=== PATIENT | male | born 1935 | race Caucasian/White ===

== ENCOUNTER → 2019-05-19 | Outpatient (CLI) | payer MEDICARE, BC ==
--- NOTE | 2019-05-19 17:36 | CT ---
EXAMINATION TYPE: CT lumbar spine wo con DATE OF EXAM: 05/19/2019 COMPARISON: None HISTORY: Low back pain. CT DLP: 1071 mGycm CONTRAST: None TECHNIQUE: CT of the lumbar spine is performed on a spiral scan at 3 mm thick sections. Reconstructed images are performed in the coronal and sagittal planes. FINDINGS: T12-L1: No focal disc herniation or significant disc bulge is evident. No spinal canal stenosis or neural foraminal stenosis is present. L1-L2: No focal disc herniation or significant disc bulge is evident. No spinal canal stenosis or n eural foraminal stenosis is present L2-L3: No focal disc herniation or significant disc bulge is evident. No spinal canal stenosis or n eural foraminal stenosis is present L3-L4: Minimal disc bulge is present with anterior thecal sac contact. No spinal canal stenosis or ne ural foraminal stenosis present. L4-L5: Mild disc bulge is mild anterior thecal sac flattening. Facet hypertrophy and ligamentum flavu m laxity is present. No spinal canal stenosis is present. There is moderate bilateral foraminal narro wing. L5-S1: Mild disc bulge is present without spinal canal stenosis or neural foraminal stenosis. Facet h ypertrophy is present. There is moderate left and mild right foraminal narrowing. Vertebral alignment appears normal. IMPRESSION: Disc bulging L3-4 through L5-S1. This appears to have the greatest effect which is mild at L4-5. No s pastro canal stenosis is present. 2. Facet hypertrophy and disc bulging contributing to moderate bilateral foraminal narrowing L4-5 and left L5-S1 discussed above.
== END | disposition home or self-care (01) ==
LOC: RADCTMAIN 13:12
PROVIDERS: ATTEND Neurological Surgery
DX: M48.061 Spinal stenosis, lumbar region without neurogenic claudication (principal); M48.07 Spinal stenosis, lumbosacral region; M51.86 Other intervertebral disc disorders, lumbar region
CPT/HCPCS: 72131

== ENCOUNTER 2023-07-04 19:54 | Inpatient (IN) | payer MEDICARE, BC ==
--- NOTE | 2023-07-04 21:36 | ED ---
General Adult HPI - General Source: patient, RN notes reviewed Mode of arrival: wheelchair <Cornelia Beavers - Last Filed: 07/04/23 21:35> - General Source: RN notes reviewed, old records reviewed - History of Present Illness -: days(s) Location: abdomen Radiation: abdomen Severity scale (1-10): 7 Quality: aching, sharp Consistency: constant Improves with: none Worsens with: none Associated Symptoms: loss of appetite, nausea/vomiting, weakness Treatments Prior to Arrival: none <Azeem Beach - Last Filed: 07/05/23 22:34> - General Chief complaint: Weakness Stated complaint: abd pain,nausea-sent from drs - History of Present Illness Initial comments: 88 year old male presents to the emergency department for chief complaint of abdominal pain. Patient is on peritoneal dialysis and reports pain x2-3 days. He is currently on antibiotics for peritonitis but his symptoms are not improving. (Cornelia Beavers) This 88-year-old male to the emergency department for evaluation multiple complaints of mainly abdominal pain. Patient was recently diagnosed with peritonitis and is eating to be admitted for IV antibiotics as well as antibiotics and need for dialysis (Azeem Beach) - Related Data Home Medications Medication Instructions Recorded Confirmed Albuterol Sulfate [Albuterol 2 puff PO RT-Q4H PRN 07/05/23 07/05/23 Sulfate Hfa] Apixaban [Eliquis] 2.5 mg PO BID 07/05/23 07/05/23 Atorvastatin [Lipitor] 20 mg PO HS 07/05/23 07/05/23 Budesonide [Pulmicort] 0.5 mg INHALATION RT-BID 07/05/23 07/05/23 Carboxymethylcellulose Sodium 1 drop BOTH EYES QID PRN 07/05/23 07/05/23 [Refresh Tears] Dialyvite 800 1 tab PO DAILY 07/05/23 07/05/23 Docusate [Colace] 100 mg PO DAILY PRN 07/05/23 07/05/23 Ferric Citrate [Auryxia] 210 mg PO BID-W/MEALS 07/05/23 07/05/23 HYDROcodone/APAP 5-325MG [[place] 1 tab PO TID 07/05/23 07/05/23 5-325] Insulin NPH Human Isophane 14 unit SQ QAM 07/05/23 07/05/23 [Novolin N Flexpen] Insulin NPH Human Isophane 34 unit SQ HS 07/05/23 07/05/23 [Novolin N Flexpen] Levothyroxine Sodium [Synthroid] 112 mcg PO DAILY 07/05/23 07/05/23 Magnesium Oxide [Mag-Ox] 400 mg PO DAILY 07/05/23 07/05/23 Megestrol Acetate 20 mg PO HS 07/05/23 07/05/23 Midodrine [ProAmatine] 5 mg PO TID 07/05/23 07/05/23 Midodrine [ProAmatine] 5 mg PO TID PRN 07/05/23 07/05/23 Pantoprazole [Protonix] 40 mg PO BID 07/05/23 07/05/23 Repaglinide [Prandin] 1 mg PO AC-TID 07/05/23 07/05/23 allopurinoL [Zyloprim] 100 mg PO DAILY 07/05/23 07/05/23 polyethylene glycoL 3350 [Miralax] 17 gm PO DAILY PRN 07/05/23 07/05/23 Allergies Allergy/AdvReac Type Severity Reaction Status Date / Time baclofen Allergy Rash/Hives Verified 07/05/23 07:31 Iodinated Contrast Media Allergy Unknown Verified 07/05/23 07:31 Sulfa (Sulfonamide Allergy Unknown Verified 07/05/23 07:31 Antibiotics) Review of Systems ROS Other: All systems not noted in ROS Statement are negative. <Cornelia Beavers - Last Filed: 07/04/23 21:35> ROS Other: All systems not noted in ROS Statement are negative. <Azeem Beach - Last Filed: 07/05/23 22:34> ROS Statement: Those systems with pertinent positive or pertinent negative responses have been documented in the HPI. Past Medical History Past Medical History: Coronary Artery Disease (CAD), Heart Failure, CVA/TIA, Hypertension, Thyroid Disorder Additional Past Medical History / Comment(s): gout, sleep apnea, glomerial nephritis, spinal stenosis, sarcoidosis, pancreatitis, 1st degree av block History of Any Multi-Drug Resistant Organisms: None Reported Past Surgical History: Appendectomy, Cholecystectomy, Hernia Repair, Orthopedic Surgery, Pacemaker Additional Past Surgical History / Comment(s): left hip, cataract, cardioversion, P cath for perontoneal dialysis Past Psychological History: No Psychological Hx Reported Smoking Status: Former smoker Past Alcohol Use History: None Reported Past Drug Use History: None Reported <Cornelia Beavers - Last Filed: 07/04/23 21:35> General Exam <Cornelia Beavers - Last Filed: 07/04/23 21:35> General appearance: alert, in no apparent distress Head exam: Present: atraumatic, normocephalic, normal inspection Eye exam: Present: normal appearance, PERRL, EOMI. Absent: scleral icterus, conjunctival injection, periorbital swelling ENT exam: Present: normal exam, mucous membranes moist Neck exam: Present: normal inspection. Absent: tenderness, meningismus, lymphadenopathy Respiratory exam: Present: normal lung sounds bilaterally. Absent: respiratory distress, wheezes, rales, rhonchi, stridor Cardiovascular Exam: Present: regular rate, normal rhythm, normal heart sounds. Absent: systolic murmur, diastolic murmur, rubs, gallop, clicks GI/Abdominal exam: Present: soft, normal bowel sounds. Absent: distended, tenderness, guarding, rebound, rigid Extremities exam: Present: normal inspection, full ROM, normal capillary refill. Absent: tenderness, pedal edema, joint swelling, calf tenderness Back exam: Present: normal inspection Neurological exam: Present: alert, oriented X3, CN II-XII intact Psychiatric exam: Present: normal affect, normal mood Skin exam: Present: warm, dry, intact, normal color. Absent: rash <Azeem Beach - Last Filed: 07/05/23 22:34> - General Exam Comments Initial Comments: Visual Physical Exam Vital signs reviewed General: Well-appearing, nontoxic, no acute distress. Head: Normocephalic, atraumatic Eyes: PERRLA, EOMI ENT: Airway patent Chest: Nonlabored breathing Skin: No visual rash, normal skin tone Neuro: Alert and oriented 3 Musculoskeletal: No gross abnormalities (Cornelia Beavers) Course <Azeem Beach - Last Filed: 07/05/23 22:34> Vital Signs 07/04/23 07/04/23 07/05/23 21:24 21:49 01:25 Temperature 97.4 F L Pulse Rate 67 85 57 L Respiratory 18 20 18 Rate Blood Pressure 83/49 117/57 97/57 O2 Sat by Pulse 96 97 94 L Oximetry 07/05/23 07/05/23 07/05/23 05:24 07:00 08:00 Temperature 97.8 F Pulse Rate 58 L 71 67 Respiratory 18 18 16 Rate Blood Pressure 94/48 108/55 88/54 O2 Sat by Pulse 98 96 96 Oximetry 07/05/23 07/05/23 07/05/23 09:00 10:00 11:00 Temperature 97.7 F Pulse Rate 60 66 62 Respiratory 16 14 16 Rate Blood Pressure 107/67 93/63 104/50 O2 Sat by Pulse 96 95 98 Oximetry 07/05/23 07/05/23 07/05/23 11:46 11:47 11:52 Temperature Pulse Rate 64 60 Respiratory Rate Blood Pressure O2 Sat by Pulse 94 L Oximetry 07/05/23 07/05/23 07/05/23 12:00 13:00 14:00 Temperature Pulse Rate 60 65 72 Respiratory 16 17 22 Rate Blood Pressure 97/56 88/62 105/55 O2 Sat by Pulse 94 L 97 99 Oximetry 07/05/23 07/05/23 07/05/23 14:30 15:00 15:30 Temperature Pulse Rate 64 59 L 90 Respiratory 18 20 22 Rate Blood Pressure 98/60 101/49 105/48 O2 Sat by Pulse 97 97 97 Oximetry 07/05/23 07/05/23 07/05/23 15:35 16:00 16:30 Temperature 98.0 F Pulse Rate 91 65 65 Respiratory 16 17 24 Rate Blood Pressure 107/58 109/50 97/58 O2 Sat by Pulse 97 96 97 Oximetry 07/05/23 07/05/23 17:30 18:00 Temperature 98.0 F Pulse Rate 62 72 Respiratory 17 20 Rate Blood Pressure 82/49 93/63 O2 Sat by Pulse 97 96 Oximetry - Reevaluation(s) Reevaluation #1: 07/05/23 01:20 Medical records are reviewed (Azeem Beach) Reevaluation #2: 07/05/23 01:49 Patient symptoms are improving (Azeem Beach) Reevaluation #3: 07/05/23 01:49 Patient informed results and questions answered (Azeem Beach) Reevaluation #4: 11/09/23 01:20 Was pt. sent in by a medical professional or institution (NYASIA Lopez, DAIRY AND FOOD LABORATORY ASSISTANT, urgent care, hospital, or jail...) When possible be specific @ -no Did you speak to anyone other than the patient for history (EMS, parent, family, police, friend...)? What history was obtained from this source @ -no Did you review nursing and triage notes (agree or disagree)? Why? @ -agree Are old charts reviewed (outside hosp., previous admission, EMS record, old EKG, old radiological studies, urgent care reports/EKG's, jail records)? Report findings @ -yes Differential Diagnosis (chest pain, altered mental status, abdominal pain women, abdominal pain men, vaginal bleeding, weakness, fever, dyspnea, syncope, headache, dizziness, GI bleed, back pain, seizure, CVA, palpatations, mental health, musculoskeletal)? @ -prior EKG interpreted by me (3pts min.). @ -yes X-rays interpreted by me (1pt min.). @ -yes CT interpreted by me (1pt min.). @ -no U/S interpreted by me (1pt. min.). @ -no What testing was considered but not performed or refused? (CT, X-rays, U/S, labs)? Why? @ -none What meds were considered but not given or refused? Why? @ -none Did you discuss the management of the patient with other professionals (professionals i.e. NYASIA Lopez, DAIRY AND FOOD LABORATORY ASSISTANT, lab, RT, psych nurse, group social worker, master machinist, teacher, detention officer, embedded case manager)? Give summary @ -no Was smoking cessation discussed for >3mins.? @ -no Was critical care preformed (if so, how long)? @ -no Were there social determinants of health that impacted care today? How? (Homelessness, low income, unemployed, alcoholism, drug addiction, transportation, low edu. Level, literacy, decrease access to med. care, snf, rehab)? @ -none Was there de-escalation of care discussed even if they declined (Discuss DNR or withdrawal of care, Hospice)? DNR status @ -no What co-morbidities impacted this encounter? (DM, HTN, Smoking, COPD, CAD, Cancer, CVA, ARF, Chemo, Hep., AIDS, mental health diagnosis, sleep apnea, morbid obesity)? @ -none Was patient admitted / discharged? Hospital course, mention meds given and route, prescriptions, significant lab abnormalities, going to OR and other pertinent info. @ - 88 male to the emergency department for evaluation of no tinnitus. Patient be admitted on IV antibiotics and diastole antibiotics and patient can be admitted for further supportive care pain control and nausea vomiting control. Admitted Undiagnosed new problem with uncertain prognosis? @ -no Drug Therapy requiring intensive monitoring for toxicity (Heparin, Nitro, Insulin, Cardizem)? @ -no Were any procedures done? @ -no Diagnosis/symptom? @ -Peritonitis, abdominal pain, dialysis Acute, or Chronic, or Acute on Chronic? @ -Acute Uncomplicated (without systemic symptoms) or Complicated (systemic symptoms)? @ -Complicated Side effects of treatment? @ -no Exacerbation, Progression, or Severe Exacerbation? @ -exacerbation Poses a threat to life or bodily function? How? (Chest pain, [place], [place], pneumonia, PE, COPD, DKA, ARF, appy, cholecystitis, CVA, Diverticulitis, Homicidal, Suicidal, threat to staff... and all critical care pts) @ -yes with extremes of age (Azeem Beach) Reevaluation #5: 07/05/23 01:20 Differential Abdominal Pain Men: Appendicitis, cholecystitis, diverticulosis, ischemic bowel, pancreatitis, hepat itis, UTI, gastroenteritis, AAA, incarcerated hernia, bowel obstruction, constipation, inflammatory bowel, hepatitis, peptic ulcer disease, splenic infarction, perforated viscus, testicular torsion, this is not meant to be an all-inclusive list (Azeem Beach) - Consultations Consultation #1: Spoke with Dr. ventura agrees to admit this patient (Azeem Beach) Consultation #2: spoke with his Dr José for nephrology (Azeem Beach) EKG Findings - EKG Comments: EKG Findings:: EKG is paced 73 QRS 176 QTC 456 - EKG Results: EKG: interpreted by ERMD <Azeem Beach - Last Filed: 07/05/23 22:34> Medical Decision Making <Cornelia Beavers - Last Filed: 07/04/23 21:35> - Lab Data Result diagrams: 07/04/23 21:51 07/04/23 21:51 - EKG Data -: EKG Interpreted by Me - Radiology Data Radiology results: report reviewed (CT of the abdomen and pelvis is possible constipation versus pending obstruction but no acute disease), image reviewed <Azeem Beach - Last Filed: 07/05/23 22:34> - Medical Decision Making I preformed the quick note portion of this chart. Electronically signed by Cornelia Beavers PA-C. (Cornelia Beavers) 88 male to the emergency department for evaluation of no tinnitus. Patient be admitted on IV antibiotics and diastole antibiotics and patient can be admitted for further supportive care pain control and nausea vomiting control. (Azeem Beach) - Lab Data Lab Results 07/04/23 07/04/23 07/04/23 Range/Units 21:51 21:51 21:51 WBC 8.8 (3.8-10.6) k/uL RBC 2.46 L (4.30-5.90) m/uL Hgb 9.2 L (13.0-17.5) gm/dL Hct 27.3 L (39.0-53.0) % MCV 110.6 H (80.0-100.0) fL MCH 37.5 H (25.0-35.0) pg MCHC 33.9 (31.0-37.0) g/dL RDW 16.5 H (11.5-15.5) % Plt Count 254 (150-450) k/uL MPV 10.6 Neutrophils % (Manual) 85 % Band Neuts % (Manual) 2 % Lymphocytes % (Manual) 6 % Monocytes % (Manual) 8 % Neutrophils # (Manual) 7.60 (1.3-7.7) k/uL Lymphocytes # (Manual) 0.53 L (1.0-4.8) k/uL Monocytes # (Manual) 0.70 (0-1.0) k/uL Nucleated RBCs 1 H (0-0) /100 WBC Manual Slide Review Performed Large Platelets Present Hypochromasia Slight Anisocytosis Slight Macrocytosis Marked A PT 10.5 (10.0-12.5) sec INR 0.9 (<1.2) APTT 27.2 (22.0-30.0) sec Sodium 122 L (137-145) mmol/L Potassium 4.2 (3.5-5.1) mmol/L Chloride 83 L (98-107) mmol/L Carbon Dioxide 22 (22-30) mmol/L Anion Gap 17 mmol/L BUN 78 H (9-20) mg/dL Creatinine 7.45 H* (0.66-1.25) mg/dL Est GFR (CKD-EPI)AfAm 7 (>60 ml/min/1.73 sqM) Est GFR (CKD-EPI)NonAf 6 (>60 ml/min/1.73 sqM) Glucose 211 H (74-99) mg/dL Lactic Ac Sepsis Rflx Plasma Lactic Acid Nikita (0.7-2.0) mmol/L Calcium 9.7 (8.4-10.2) mg/dL Phosphorus 6.3 H (2.5-4.5) mg/dL Magnesium 1.7 (1.6-2.3) mg/dL Total Bilirubin 0.7 (0.2-1.3) mg/dL AST 74 H (17-59) U/L ALT 47 (4-49) U/L Alkaline Phosphatase 211 H (38-126) U/L Total Protein 6.0 L (6.3-8.2) g/dL Albumin 3.4 L (3.5-5.0) g/dL 07/04/23 07/04/23 Range/Units 21:51 23:32 WBC (3.8-10.6) k/uL RBC (4.30-5.90) m/uL Hgb (13.0-17.5) gm/dL Hct (39.0-53.0) % MCV (80.0-100.0) fL MCH (25.0-35.0) pg MCHC (31.0-37.0) g/dL RDW (11.5-15.5) % Plt Count (150-450) k/uL MPV Neutrophils % (Manual) % Band Neuts % (Manual) % Lymphocytes % (Manual) % Monocytes % (Manual) % Neutrophils # (Manual) (1.3-7.7) k/uL Lymphocytes # (Manual) (1.0-4.8) k/uL Monocytes # (Manual) (0-1.0) k/uL Nucleated RBCs (0-0) /100 WBC Manual Slide Review Large Platelets Hypochromasia Anisocytosis Macrocytosis PT (10.0-12.5) sec INR (<1.2) APTT (22.0-30.0) sec Sodium (137-145) mmol/L Potassium (3.5-5.1) mmol/L Chloride (98-107) mmol/L Carbon Dioxide (22-30) mmol/L Anion Gap mmol/L BUN (9-20) mg/dL Creatinine (0.66-1.25) mg/dL Est GFR (CKD-EPI)AfAm (>60 ml/min/1.73 sqM) Est GFR (CKD-EPI)NonAf (>60 ml/min/1.73 sqM) Glucose (74-99) mg/dL Lactic Ac Sepsis Rflx Y Plasma Lactic Acid Nikita 2.4 H* (0.7-2.0) mmol/L Calcium (8.4-10.2) mg/dL Phosphorus (2.5-4.5) mg/dL Magnesium (1.6-2.3) mg/dL Total Bilirubin (0.2-1.3) mg/dL AST (17-59) U/L ALT (4-49) U/L Alkaline Phosphatase (38-126) U/L Total Protein (6.3-8.2) g/dL Albumin (3.5-5.0) g/dL Disposition <Cornelia Beavers - Last Filed: 07/04/23 21:35> Is patient prescribed a controlled substance at d/c from ED?: No Time of Disposition: 01:45 <Azeem Beach - Last Filed: 07/05/23 22:34> Clinical Impression: Dehydration, Abdominal pain, Peritonitis, CKD (chronic kidney disease) Disposition: ADMITTED IP TO THIS HOSP Condition: Serious
[2023-07-04 23:31] LABS: INR 0.9 (<1.2); Prothrombin Time 10.5 sec (10.0-12.5)
[2023-07-04 23:32] LABS: ALT 47 U/L (4-49); AST 74 U/L (17-59); African American GFR (CKD) 7 (>60 ml/min/1.73 sqM); Albumin 3.4 g/dL (3.5-5.0); Alkaline Phosphatase 211 U/L (38-126); Anion Gap 17 mmol/L; Blood Urea Nitrogen 78 mg/dL (9-20); Calcium 9.7 mg/dL (8.4-10.2); Carbon Dioxide 22 mmol/L (22-30); Chloride 83 mmol/L (98-107); Glucose 211 mg/dL (74-99); Magnesium 1.7 mg/dL (1.6-2.3); Non-African American GFR(CKD) 6 (>60 ml/min/1.73 sqM); Partial Thromboplastin Time 27.2 sec (22.0-30.0); Phosphorus 6.3 mg/dL (2.5-4.5); Potassium 4.2 mmol/L (3.5-5.1); Sodium 122 mmol/L (137-145); Total Bilirubin 0.7 mg/dL (0.2-1.3)
[2023-07-04 23:52] LABS: Anisocytosis Slight; HCT 27.3 % (39.0-53.0); HGB 9.2 gm/dL (13.0-17.5); Hypochromasia Slight; MCH 37.5 pg (25.0-35.0); MCHC 33.9 g/dL (31.0-37.0); MCV 110.6 fL (80.0-100.0); Macrocytosis Marked; Mean Platelet Volume 10.6; Platelet Count 254 k/uL (150-450); RBC 2.46 m/uL (4.30-5.90); RDW 16.5 % (11.5-15.5)
[2023-07-04] MEDS ORDERED: ONDANSETRON 4 MG/2 ML VIAL IVP PRN (23:52)
[2023-07-04] MEDS ORDERED: MORPHINE SULFATE 4 MG/ML SYRINGE IVP STA (23:52)
[2023-07-04] MEDS ORDERED: ONDANSETRON 4 MG/2 ML VIAL IVP STA (23:52)
[2023-07-05 00:31] LABS: Band Neutrophils % 2 %; Lymphocytes # (M) 0.53 k/uL (1.0-4.8); Neutrophils % (M) 85 %; Nucleated Red Blood Cells 1 /100 WBC (0-0); Total Cells Counted 200; WBC 8.8 k/uL (3.8-10.6)
[2023-07-05 00:32] LABS: Large Platelets Present
[2023-07-05] MEDS ORDERED: VANCOMYCIN IV PER PHARMACY 1 EACH MISC MISCELLANE PRN (01:17)
[2023-07-05] MEDS ORDERED: NALOXONE 0.4 MG/ML 1 ML VIAL IV PRN (01:43)
[2023-07-05] MEDS ORDERED: SODIUM CHLORIDE 0.9% 1,000 ML IV SCH (01:45)
[2023-07-05] MEDS ORDERED: VANCOMYCIN 1,500 MG in SODIUM CHLORIDE 0.9% 500 ML 500 ML IVPB ONE (02:00)
[2023-07-05] MEDS: DIALYSIS (PERIT 1.5%) 2,500 ML 37.5 G/2,500 ML BAG INTRAPERIT SCH ×2 (03:17→09:40)
[2023-07-05] MEDS: MORPHINE SULFATE 4 MG/ML SYRINGE IVP PRN ×4 (04:15→22:22)
--- NOTE | 2023-07-05 04:21 | CT ---
EXAM: CT Abdomen and Pelvis Without Intravenous Contrast CLINICAL HISTORY: pain TECHNIQUE: Axial computed tomography images of the abdomen and pelvis without intravenous contrast. CTDI is 13.2 mGy and DLP is 987.2 mGy-cm. This CT exam was performed using one or more of the following dose reduction techniques: automated exposure control, adjustment of the mA and/or kV according to patient size, and/or use of iterative reconstruction technique. COMPARISON: No relevant prior studies available. FINDINGS: Limitations: There is respiratory artifact, which degrades image quality on multiple image slices. Lung bases: Unremarkable. No mass. No consolidation. ABDOMEN: Liver: Unremarkable. Gallbladder and bile ducts: Cholecystectomy. No ductal dilation. Pancreas: Unremarkable. No ductal dilation. Spleen: Unremarkable. No splenomegaly. Adrenals: Unremarkable. No mass. Kidneys and ureters: The kidneys are atrophic in appearance. No hydronephrosis. The right kidney demonstrates cortical cyst inferiorly with the largest measuring 6.9 cm. Stomach and bowel: No evidence for focal high-grade bowel obstruction. There is abnormal fluid and gas distention, but not dilation of multiple small bowel loops in the anterior abdomen and pelvis. There is fecal appearing material in a bowel loop in the anterolateral pelvis with questionable subtle mucosal thickening. However, there appears to be distention of small bowel loops beyond this level. PELVIS: Appendix: Not clearly delineated. Bladder: The bladder is decompressed, limiting evaluation. No stones. Reproductive: Unremarkable as visualized. ABDOMEN and PELVIS: Intraperitoneal space: Mild free fluid throughout the pelvis is noted. Minimal pneumoperitoneum is identified anteriorly. Bones/joints: A left total hip arthroplasty is noted. No acute osseous abnormality. No dislocation. Soft tissues: Unremarkable. Vasculature: Unremarkable. No abdominal aortic aneurysm. Lymph nodes: Unremarkable. No enlarged lymph nodes. Tubes, lines and devices: A tunneled peritoneal catheter is noted in the pelvis. IMPRESSION: 1. No evidence for focal high-grade bowel obstruction. There is abnormal fluid and gas distention, but not dilation of multiple small bowel loops in the anterior abdomen and pelvis. There is fecal appearing material in a bowel loop in the anterolateral pelvis with questionable subtle mucosal thickening. However, there appears to be distention of small bowel loops beyond this level. Findings suggest enteritis. If there is concern for a developing subtle/partial mid small bowel obstruction, dedicated small bowel follow-through may provide additional information, as clinically appropriate. 2. A tunneled peritoneal catheter is noted in the pelvis. Mild free fluid or pneumoperitoneum.
[2023-07-05] MEDS ORDERED: METOCLOPRAMIDE 5 MG/ML 2 ML VIAL IVP STA (05:26)
[2023-07-05] MEDS ORDERED: ARTIFICIAL TEARS-HYPROMELLOSE DROPS 15 ML BTL BOTH EYES PRN (11:06)
[2023-07-05] MEDS ORDERED: ALBUTEROL NEBULIZED 2.5 MG/3 ML INHALATION PRN (11:06)
[2023-07-05] MEDS ORDERED: polyethylene glycoL 3350 17 GM POWD.PACK PO PRN (11:06)
[2023-07-05] MEDS ORDERED: MIDODRINE 5 MG TAB PO PRN (11:06)
[2023-07-05] MEDS ORDERED: DEXTROSE 50% SYRINGE 50 ML IVP PRN ×2 (11:08)
[2023-07-05] MEDS ORDERED: PANTOPRAZOLE 40 MG TABLET PO SCH (11:15)
[2023-07-05] MEDS ORDERED: allopurinoL 100 MG TAB PO SCH (11:15)
[2023-07-05] MEDS ORDERED: MAGNESIUM OXIDE 400 MG TAB PO SCH (11:15)
[2023-07-05] MEDS ORDERED: FOLIC ACID-VIT B COMPLEX-VIT C 1 CAP PO SCH (11:15)
[2023-07-05] MEDS ORDERED: INSULIN NPH 100 UNIT/ML 10 ML VIAL SQ SCH ×2 (11:15→21:00)
[2023-07-05] MEDS ORDERED: LEVOTHYROXINE 112 MCG TAB PO SCH (11:15)
[2023-07-05] MEDS: BUDESONIDE 0.5 MG/2 ML NEBU INHALATION SCH ×2 (11:44→20:23)
[2023-07-05] MEDS: MIDODRINE 5 MG TAB PO SCH ×2 (11:59→17:54)
[2023-07-05 12:07] LABS: Glucose,Whole Blood 225 mg/dL (70-110)
[2023-07-05] MEDS ORDERED: REPAGLINIDE 1 MG TAB PO SCH (12:30)
[2023-07-05] MEDS ORDERED: DIALYSIS INTRAPERIT SCH ×2 (14:00→20:00)
[2023-07-05] MEDS ORDERED: HEPARIN SODIUM PORCINE INTRAPERIT SCH (14:00)
--- NOTE | 2023-07-05 14:45 | P.NPCON ---
History of Present Illness - Reason for Consult end stage renal disease - History of Present Illness Patient is an 88-year-old male with end-stage renal disease maintained on peritoneal dialysis. He is admitted to the hospital with history of cloudy bag and abdominal pain with nausea. Symptoms started on 07/02/2023. Patient received intraperitoneal vancomycin and ceftazidime. Initial Gram stain done as outpatient shows gram-positive cocci and white cell count was 1371. Repeat fluid studies ordered today. No history of previous episodes of diarrhea or abdominal pain. Patient's does not recall any mishaps during the exchanges. She states she has been taking the usual precautions. Patient usually has low blood pressure with systolic ranging in the 80s. He is maintained on midodrine at home. Review of Systems As per HPI Past Medical History Past Medical History: Coronary Artery Disease (CAD), Heart Failure, CVA/TIA, H ypertension, Thyroid Disorder Additional Past Medical History / Comment(s): gout, sleep apnea, glomerial nephritis, spinal stenosis, sarcoidosis, pancreatitis, 1st degree av block History of Any Multi-Drug Resistant Organisms: None Reported Past Surgical History: Appendectomy, Cholecystectomy, Hernia Repair, Orthopedic Surgery, Pacemaker Additional Past Surgical History / Comment(s): left hip, cataract, cardioversion, P cath for perontoneal dialysis Past Psychological History: No Psychological Hx Reported Smoking Status: Former smoker Past Alcohol Use History: None Reported Past Drug Use History: None Reported Medications and Allergies Home Medications Medication Instructions Recorded Confirmed Type Albuterol Sulfate [Albuterol 2 puff PO RT-Q4H PRN 07/05/23 07/05/23 History Sulfate Hfa] Apixaban [Eliquis] 2.5 mg PO BID 07/05/23 07/05/23 History Atorvastatin [Lipitor] 20 mg PO HS 07/05/23 07/05/23 History Budesonide [Pulmicort] 0.5 mg INHALATION RT-BID 07/05/23 07/05/23 History Carboxymethylcellulose Sodium 1 drop BOTH EYES QID PRN 07/05/23 07/05/23 History [Refresh Tears] Dialyvite 800 1 tab PO DAILY 07/05/23 07/05/23 History Docusate [Colace] 100 mg PO DAILY PRN 07/05/23 07/05/23 History Ferric Citrate [Auryxia] 210 mg PO BID-W/MEALS 07/05/23 07/05/23 History HYDROcodone/APAP 5-325MG [[place] 1 tab PO TID 07/05/23 07/05/23 History 5-325] Insulin NPH Human Isophane 14 unit SQ QAM 07/05/23 07/05/23 History [Novolin N Flexpen] Insulin NPH Human Isophane 34 unit SQ HS 07/05/23 07/05/23 History [Novolin N Flexpen] Levothyroxine Sodium [Synthroid] 112 mcg PO DAILY 07/05/23 07/05/23 History Magnesium Oxide [Mag-Ox] 400 mg PO DAILY 07/05/23 07/05/23 History Megestrol Acetate 20 mg PO HS 07/05/23 07/05/23 History Midodrine [ProAmatine] 5 mg PO TID 07/05/23 07/05/23 History Midodrine [ProAmatine] 5 mg PO TID PRN 07/05/23 07/05/23 History Pantoprazole [Protonix] 40 mg PO BID 07/05/23 07/05/23 History Repaglinide [Prandin] 1 mg PO AC-TID 07/05/23 07/05/23 History allopurinoL [Zyloprim] 100 mg PO DAILY 07/05/23 07/05/23 History polyethylene glycoL 3350 [Miralax] 17 gm PO DAILY PRN 07/05/23 07/05/23 History Allergies Allergy/AdvReac Type Severity Reaction Status Date / Time baclofen Allergy Rash/Hives Verified 07/05/23 07:31 Iodinated Contrast Media Allergy Unknown Verified 07/05/23 07:31 Sulfa (Sulfonamide Allergy Unknown Verified 07/05/23 07:31 Antibiotics) Physical Exam Vitals: Vital Signs Temp Pulse Resp BP Pulse Ox 07/05/23 14:00 72 22 105/55 99 07/05/23 13:00 65 17 88/62 97 07/05/23 12:00 60 16 97/56 94 L 07/05/23 11:52 60 07/05/23 11:47 94 L 07/05/23 11:46 64 07/05/23 11:00 62 16 104/50 98 07/05/23 10:00 97.7 F 66 14 93/63 95 07/05/23 09:00 60 16 107/67 96 07/05/23 08:00 67 16 88/54 96 07/05/23 07:00 97.8 F 71 18 108/55 96 07/05/23 05:24 58 L 18 94/48 98 07/05/23 01:25 57 L 18 97/57 94 L 07/04/23 21:49 85 20 117/57 97 07/04/23 21:24 97.4 F L 67 18 83/49 96 Intake and Output 07/04/23 07/05/23 07/05/23 22:59 06:59 14:59 Other: Weight 91.172 kg Patient is awake, comfortable, no acute distress Abdomen is soft mild tenderness. Distended with dialysate fluid Examination of lower extremities shows edema 1+ bilaterally which is significantly improved Examination of the heart S1 and S2 Examination of the lungs bilateral breath sounds are heard with decreased breath sounds at the bases TIE IN HAND exam grossly intact Results - Lab Results Most recent lab results Calcium 9.7 mg/dL (8.4-10.2) 07/04/23 21:51 Phosphorus 6.3 mg/dL (2.5-4.5) H 07/04/23 21:51 Magnesium 1.7 mg/dL (1.6-2.3) 07/04/23 21:51 07/04/23 21:51 07/04/23 21:51 Assessment and Plan Assessment: 1. End-stage renal disease on peritoneal dialysis 2. CAPD peritonitis maintained on IV ceftazidime. Patient received intraperitoneal vancomycin and Ceptaz edema on 07/03/2023. Initial Gram stain shows gram-positive cocci and initial WBC count was 1371 on 07/03/2023 3. Chronic hypotension, maintained on midodrine 4. CK D mineral bone disorder 5. Possible ileus noted on CT of the abdomen Plan: Add intraperitoneal ceftazidime Repeat PD fluid cell count and await final culture from initial fluid sent out on 07/03/2023 as outpatient Consult ID Agree with surgical consult. Next Thank you for the consultation. We will continue to follow the patient with you during his hospitalization.
[2023-07-05] MEDS: HYDROcodone/APAP 5-325MG 1 EACH TAB PO SCH ×3 (14:57→22:17)
--- NOTE | 2023-07-05 15:05 | P.HPIM ---
History of Present Illness H&P Date: 07/05/23 Chief Complaint: Abdominal pain This is a pleasant 88-year-old patient, follows with Dr. Chirinos. Chronic stable medical conditions include CHF, essential hypertension, hypothyroid, gout, obstructive sleep apnea does not use CPAP, spinal stenosis, sarcoidosis affecting the lungs, pacemaker. Patient is accompanied by his and son at the bedside. In the ER. Patient was in hemodialysis for 6 months and then on peritoneal dialysis. Last year and a half. [facility] Dr. José. For about 4 days patient started having increasing abdominal pain. Rather significant. No fever no chills. Decreased appetite. Patient gets continuous dialysis. Dialysis fluid has become cloudy. He has been receiving intraperitoneal vancomycin and ceftazidime. Outpatient Gram stain per Dr. José showed gram-positive cocci and a white cell count of 1371. She is having nausea to home. Slight vomiting in the ER. Review of systems: GEN.: Tired and sleepy EYES: None HEENT: None NECK: None RESPIRATORY: None CARDIOVASCULAR: None GASTROINTESTINAL: As above] GENITOURINARY: None MUSCULOSKELETAL: Some joint pains LYMPHATICS: None HEMATOLOGICAL: None PSYCHIATRY: None NEUROLOGICAL: Does use a walker and Wheelchair. Past medical history to include: Congestive heart failure, hypertension, hypothyroid, gout, obstructive sleep apnea does not use CPAP, glomerulonephritis, spinal stenosis, sarcoidosis of the lung, pancreatitis, pacemaker. Denies any CAD. Social history: Patient had multiple jobs. . Prior smoker, no alcohol. Physical examination: VITAL SIGNS: 97.8, 71, 18, 108/55, 96% room air GENERAL: BMI 30.6, reclining in bed tired. EYES: Pupils equal. Conjunctiva normal. HEENT: External appearance of nose and ears normal, oral cavity grossly normal. NECK: JVD not raised; masses not palpable. HEART: First and second heart sounds are normal; edema present. LUNGS: Respiratory rate normal; decreased breath sounds. ABDOMEN: Soft, some distention, tenderness no guarding rigidity, liver spleen not palpable, no masses palpable. PSYCH: Alert and oriented x3; mood and affect tiredl. MUSCULOSKELETAL:No Clubbing/cyanosis;muscles-grossly intact. OA NEUROLOGICAL: Cranial nerves grossly intact; no facial asymmetry, power and sensation grossly intact. LYMPHATICS: No lymph nodes palpable in the axilla and neck INVESTIGATIONS, reviewed in the clinical context: 07/04/2023: White count 8.8 hemoglobin 9.2 platelets 254 sodium 122 potassium 4.2 BUN 78 creatinine 7.45 albumin 3.4 EKG tracing personally reviewed by me-ventricle paced rhythm, atrial flutter Computed tomography scan abdomen and pelvis: Abnormal fluid and gas distention. Distention of small bowel loops. Suggestive of enteritis. Assessment and plan: -Secondary peritonitis secondary peritoneal dialysis. Patient has been receiving IV ceftazidime and vancomycin and is dialysis exchange. Outpatient culture showed gram-positive cocci. Repeat cultures have been ordered. Patient to continue with vancomycin and ceftazidime with dialysis. Nephrology Dr. José is following. 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 We'll hold off Prandin and Novolin N. We'll/the patient over to Levemir -Patient has persistent nausea and some vomiting. Question about enteritis on the computed tomography scan. No obvious evidence of self obstruction. GI services not available to the hospital. Consult general surgery. Liquid diet -Anemia of chronic kidney disease -Chronic medical debility, uses a cane/walker at baseline -Full code Care was discussed with the patient, , son at the bedside.Given the complexity and severity of patient's condition expect the patient to be in the hospital at least for 2 overnights Past Medical History Past Medical History: Coronary Artery Disease (CAD), Heart Failure, CVA/TIA, Hypertension, Thyroid Disorder Additional Past Medical History / Comment(s): gout, sleep apnea, glomerial nephritis, spinal stenosis, sarcoidosis, pancreatitis, 1st degree av block History of Any Multi-Drug Resistant Organisms: None Reported Past Surgical History: Appendectomy, Cholecystectomy, Hernia Repair, Orthopedic Surgery, Pacemaker Additional Past Surgical History / Comment(s): left hip, cataract, cardioversion, P cath for perontoneal dialysis Past Psychological History: No Psychological Hx Reported Smoking Status: Former smoker Past Alcohol Use History: None Reported Past Drug Use History: None Reported Medications and Allergies Home Medications Medication Instructions Recorded Confirmed Type Albuterol Sulfate [Albuterol 2 puff PO RT-Q4H PRN 07/05/23 07/05/23 History Sulfate Hfa] Apixaban [Eliquis] 2.5 mg PO BID 07/05/23 07/05/23 History Atorvastatin [Lipitor] 20 mg PO HS 07/05/23 07/05/23 History Budesonide [Pulmicort] 0.5 mg INHALATION RT-BID 07/05/23 07/05/23 History Carboxymethylcellulose Sodium 1 drop BOTH EYES QID PRN 07/05/23 07/05/23 History [Refresh Tears] Dialyvite 800 1 tab PO DAILY 07/05/23 07/05/23 History Docusate [Colace] 100 mg PO DAILY PRN 07/05/23 07/05/23 History Ferric Citrate [Auryxia] 210 mg PO BID-W/MEALS 07/05/23 07/05/23 History HYDROcodone/APAP 5-325MG [[place] 1 tab PO TID 07/05/23 07/05/23 History 5-325] Insulin NPH Human Isophane 14 unit SQ QAM 07/05/23 07/05/23 History [Novolin N Flexpen] Insulin NPH Human Isophane 34 unit SQ HS 07/05/23 07/05/23 History [Novolin N Flexpen] Levothyroxine Sodium [Synthroid] 112 mcg PO DAILY 07/05/23 07/05/23 History Magnesium Oxide [Mag-Ox] 400 mg PO DAILY 07/05/23 07/05/23 History Megestrol Acetate 20 mg PO HS 07/05/23 07/05/23 History Midodrine [ProAmatine] 5 mg PO TID 07/05/23 07/05/23 History Midodrine [ProAmatine] 5 mg PO TID PRN 07/05/23 07/05/23 History Pantoprazole [Protonix] 40 mg PO BID 07/05/23 07/05/23 History Repaglinide [Prandin] 1 mg PO AC-TID 07/05/23 07/05/23 History allopurinoL [Zyloprim] 100 mg PO DAILY 07/05/23 07/05/23 History polyethylene glycoL 3350 [Miralax] 17 gm PO DAILY PRN 07/05/23 07/05/23 History Allergies Allergy/AdvReac Type Severity Reaction Status Date / Time baclofen Allergy Rash/Hives Verified 07/05/23 07:31 Iodinated Contrast Media Allergy Unknown Verified 07/05/23 07:31 Sulfa (Sulfonamide Allergy Unknown Verified 07/05/23 07:31 Antibiotics) Physical Exam Vitals: Vital Signs Temp Pulse Resp BP Pulse Ox 07/05/23 05:24 58 L 18 94/48 98 07/05/23 01:25 57 L 18 97/57 94 L 07/04/23 21:49 85 20 117/57 97 07/04/23 21:24 97.4 F L 67 18 83/49 96 Intake and Output 07/04/23 07/05/23 07/05/23 22:59 06:59 14:59 Other: Weight 91.172 kg Results CBC & Chem 7: 07/04/23 21:51 07/04/23 21:51 Labs: Abnormal Lab Results - Last 24 Hours (Table) 07/04/23 07/04/23 07/04/23 Range/Units 21:51 21:51 21:51 RBC 2.46 L (4.30-5.90) m/uL Hgb 9.2 L (13.0-17.5) gm/dL Hct 27.3 L (39.0-53.0) % MCV 110.6 H (80.0-100.0) fL MCH 37.5 H (25.0-35.0) pg RDW 16.5 H (11.5-15.5) % Lymphocytes # (Manual) 0.53 L (1.0-4.8) k/uL Nucleated RBCs 1 H (0-0) /100 WBC Macrocytosis Marked A Sodium 122 L (137-145) mmol/L Chloride 83 L (98-107) mmol/L BUN 78 H (9-20) mg/dL Creatinine 7.45 H* (0.66-1.25) mg/dL Glucose 211 H (74-99) mg/dL Plasma Lactic Acid Nikita 2.4 H* (0.7-2.0) mmol/L Phosphorus 6.3 H (2.5-4.5) mg/dL AST 74 H (17-59) U/L Alkaline Phosphatase 211 H (38-126) U/L Total Protein 6.0 L (6.3-8.2) g/dL Albumin 3.4 L (3.5-5.0) g/dL
--- NOTE | 2023-07-05 15:18 | XR ---
EXAMINATION TYPE: XR chest 1V DATE OF EXAM: 07/05/2023 3:11 PM COMPARISON: None TECHNIQUE: XR chest 1V Frontal view of the chest. CLINICAL INDICATION:Male, 88 years old with history of CHF; FINDINGS: Lungs/Pleura: Low lung volumes are present. Blunting of both costal angles. No focal consolidation or pneumothorax. Pulmonary vascularity: Mild pulmonary vascular congestion. Heart/mediastinum: Cardiomediastinal silhouette is enlarged. Atherosclerotic calcifications are seen in the aorta. Two lead cardiac conduction device overlying the left hemithorax with lead tips projec ting over the right ventricle and right atrium. Musculoskeletal: No acute osseous pathology. IMPRESSION: Cardiomegaly, pulmonary vascular congestion and small bilateral pleural effusions. Correlate with BNP for congestive heart failure. Low lung volumes.
[2023-07-05] MEDS: INSULIN ASPART (NovoLOG) 100 UNIT/ML VIAL SQ SCH ×2 (15:31→16:04)
--- NOTE | 2023-07-05 15:44 | P.GSCN ---
History of Present Illness Consult date: 07/05/23 History of present illness: CHIEF COMPLAINT: Abdominal pain HISTORY OF PRESENT ILLNESS: This is a 88-year-old male with a known history of end-stage renal disease on peritoneal dialysis. The patient started having abdominal pain on Sunday with nausea and vomiting. He had cloudy fluid noted with dialysis. And was started on antibiotics. He's had no improvement in his abdominal pain and came into the ER for further evaluation. Patient admitted to the hospital with peritonitis and is currently on IV antibiotics. Peritoneal fluid is being sent for culture. And infectious disease on consult. Patient has had no bowel movement 2 days. Denies any flatus. He's had nausea and vomiting throughout the morning. His abdomen is distended with diffuse tenderness. He denies any prior history of bowel obstruction. Past surgical history does include appendectomy, cholecystectomy and hernia repair. She does have a history of pacemaker and atrial fibrillation and last dose of Eliquis was the morning of 07/04/23. Patient denies any fever chills or sweats. Patient had a computed tomography scan of the abdomen and pelvis that reported no evidence of high-grade bowel obstruction. There is abnormal fluid and gas distention. Findings suggest enteritis. Patient deny eating his lunch. He has had some episodes of hypotension. Peritoneal dialysis catheter was placed on 06/08/2022 at [facility]. Surgical service has been consulted for abdominal pain. PAST MEDICAL HISTORY: See below PAST SURGICAL HISTORY: See below MEDICATIONS: See below ALLERGIES: See below SOCIAL HISTORY: No illicit drug use. REVIEW OF SYSTEMS: CONSTITUTIONAL: Denies fever or chills. HEENT: Denies blurred vision, vision changes, or eye pain. Denies hemoptysis CARDIOVASCULAR: Denies chest pain or pressure. RESPIRATORY: No shortness of breath. GASTROINTESTINAL: See HPI for pertinent findings HEMATOLOGIC: Denies bleeding disorders. GENITOURINARY: Denies any blood in urine or increased urinary frequency. SKIN: Denies pruitis. Denies rash. PHYSICAL EXAM: VITAL SIGNS: Reviewed GENERAL: Well-developed in no acute distress. ABDOMEN: Distended. Diffuse tenderness. NEUROLOGIC: Alert and oriented. Cranial nerves II through XII grossly intact. LABORATORY DATA: WBC 8.8 Hgb 9.2 plt 254 Na 122 K 4.2 Cr. 7.45 Lactic acid 2.4 down to 1.7 IMAGING: Computed tomography scan abdomen and pelvis no evidence for focal high-grade bowel obstruction. There is abnormal fluid and gas distention. There is fecal appearing material in the bowel loop in the anterior lateral pelvis with question of subtle mucosal thickening. However there appears to be distention of small bowel loops beyond this level. Findings suggest enteritis. If they're concern for due to developing subtle/partial mid small bowel obstruction, dedicated small bowel follow-through may provide additional information. Tunneled peritoneal catheter is noted in the pelvis mild free fluid or pneumoperitoneum ASSESSMENT: 1. Abdominal pain and distention with nausea and vomiting 2. Peritonitis secondary to peritoneal dialysis PLAN: -Place NG tube for decompression -Make patient NPO -Change Zofran to q 4 hours PRN -Change Protonix to IV for nausea and vomiting -Continue Antibiotics -Further recommendations forthcoming per surgeon Physician Certified [employer] Administrator note has been reviewed by physician. Signing provider agrees with the documented findings, assessment, and plan of care. I have personally seen and examined the patient, reviewed the MATTRESS FINISHER /PAs history, exam and MDM and agree with the assessment and plan as written. Based on total visit time, I have performed more than 50% of the visit. As above: Patient with probable community-acquired peritoneal dialysis after associated peritonitis. Awaiting final cultures. Agree with antibiotics. Changes on CAT scan likely related to ileus from the peritonitis. Continue bowel rest. Nasogastric tube to suction. Past Medical History Past Medical History: Coronary Artery Disease (CAD), Heart Failure, CVA/TIA, Hypertension, Thyroid Disorder Additional Past Medical History / Comment(s): gout, sleep apnea, glomerial nephritis, spinal stenosis, sarcoidosis, pancreatitis, 1st degree av block History of Any Multi-Drug Resistant Organisms: None Reported Past Surgical History: Appendectomy, Cholecystectomy, Hernia Repair, Orthopedic Surgery, Pacemaker Additional Past Surgical History / Comment(s): left hip, cataract, cardioversion, P cath for perontoneal dialysis Past Psychological History: No Psychological Hx Reported Smoking Status: Former smoker Past Alcohol Use History: None Reported Past Drug Use History: None Reported Medications and Allergies Home Medications Medication Instructions Recorded Confirmed Type Albuterol Sulfate [Albuterol 2 puff PO RT-Q4H PRN 07/05/23 07/05/23 History Sulfate Hfa] Apixaban [Eliquis] 2.5 mg PO BID 07/05/23 07/05/23 History Atorvastatin [Lipitor] 20 mg PO HS 07/05/23 07/05/23 History Budesonide [Pulmicort] 0.5 mg INHALATION RT-BID 07/05/23 07/05/23 History Carboxymethylcellulose Sodium 1 drop BOTH EYES QID PRN 07/05/23 07/05/23 History [Refresh Tears] Dialyvite 800 1 tab PO DAILY 07/05/23 07/05/23 History Docusate [Colace] 100 mg PO DAILY PRN 07/05/23 07/05/23 History Ferric Citrate [Auryxia] 210 mg PO BID-W/MEALS 07/05/23 07/05/23 History HYDROcodone/APAP 5-325MG [[place] 1 tab PO TID 07/05/23 07/05/23 History 5-325] Insulin NPH Human Isophane 14 unit SQ QAM 07/05/23 07/05/23 History [Novolin N Flexpen] Insulin NPH Human Isophane 34 unit SQ HS 07/05/23 07/05/23 History [Novolin N Flexpen] Levothyroxine Sodium [Synthroid] 112 mcg PO DAILY 07/05/23 07/05/23 History Magnesium Oxide [Mag-Ox] 400 mg PO DAILY 07/05/23 07/05/23 History Megestrol Acetate 20 mg PO HS 07/05/23 07/05/23 History Midodrine [ProAmatine] 5 mg PO TID 07/05/23 07/05/23 History Midodrine [ProAmatine] 5 mg PO TID PRN 07/05/23 07/05/23 History Pantoprazole [Protonix] 40 mg PO BID 07/05/23 07/05/23 History Repaglinide [Prandin] 1 mg PO AC-TID 07/05/23 07/05/23 History allopurinoL [Zyloprim] 100 mg PO DAILY 07/05/23 07/05/23 History polyethylene glycoL 3350 [Miralax] 17 gm PO DAILY PRN 07/05/23 07/05/23 History Allergies Allergy/AdvReac Type Severity Reaction Status Date / Time baclofen Allergy Rash/Hives Verified 07/05/23 07:31 Iodinated Contrast Media Allergy Unknown Verified 07/05/23 07:31 Sulfa (Sulfonamide Allergy Unknown Verified 11/09/23 07:31 Antibiotics) Surgical - Exam Vital Signs Temp Pulse Resp BP Pulse Ox 97.4 F L 67 18 83/49 96 07/04/23 21:24 07/04/23 21:24 07/04/23 21:24 07/04/23 21:24 07/04/23 21:24 Results - Labs 07/04/23 21:51 07/04/23 21:51 Abnormal Lab Results - Last 24 Hours (Table) 07/04/23 07/04/23 07/04/23 Range/Units 21:51 21:51 21:51 RBC 2.46 L (4.30-5.90) m/uL Hgb 9.2 L (13.0-17.5) gm/dL Hct 27.3 L (39.0-53.0) % MCV 110.6 H (80.0-100.0) fL MCH 37.5 H (25.0-35.0) pg RDW 16.5 H (11.5-15.5) % Lymphocytes # (Manual) 0.53 L (1.0-4.8) k/uL Nucleated RBCs 1 H (0-0) /100 WBC Macrocytosis Marked A Sodium 122 L (137-145) mmol/L Chloride 83 L (98-107) mmol/L BUN 78 H (9-20) mg/dL Creatinine 7.45 H* (0.66-1.25) mg/dL Glucose 211 H (74-99) mg/dL POC Glucose (mg/dL) (70-110) mg/dL Plasma Lactic Acid Nikita 2.4 H* (0.7-2.0) mmol/L Phosphorus 6.3 H (2.5-4.5) mg/dL AST 74 H (17-59) U/L Alkaline Phosphatase 211 H (38-126) U/L Total Protein 6.0 L (6.3-8.2) g/dL Albumin 3.4 L (3.5-5.0) g/dL 07/05/23 Range/Units 12:00 RBC (4.30-5.90) m/uL Hgb (13.0-17.5) gm/dL Hct (39.0-53.0) % MCV (80.0-100.0) fL MCH (25.0-35.0) pg RDW (11.5-15.5) % Lymphocytes # (Manual) (1.0-4.8) k/uL Nucleated RBCs (0-0) /100 WBC Macrocytosis Sodium (137-145) mmol/L Chloride (98-107) mmol/L BUN (9-20) mg/dL Creatinine (0.66-1.25) mg/dL Glucose (74-99) mg/dL POC Glucose (mg/dL) 225 H (70-110) mg/dL Plasma Lactic Acid Nikita (0.7-2.0) mmol/L Phosphorus (2.5-4.5) mg/dL AST (17-59) U/L Alkaline Phosphatase (38-126) U/L Total Protein (6.3-8.2) g/dL Albumin (3.5-5.0) g/dL Diabetes panel 07/04/23 Range/Units 21:51 Sodium 122 L (137-145) mmol/L Potassium 4.2 (3.5-5.1) mmol/L Chloride 83 L (98-107) mmol/L Carbon Dioxide 22 (22-30) mmol/L BUN 78 H (9-20) mg/dL Creatinine 7.45 H* (0.66-1.25) mg/dL Glucose 211 H (74-99) mg/dL Calcium 9.7 (8.4-10.2) mg/dL AST 74 H (17-59) U/L ALT 47 (4-49) U/L Alkaline Phosphatase 211 H (38-126) U/L Total Protein 6.0 L (6.3-8.2) g/dL Albumin 3.4 L (3.5-5.0) g/dL Calcium panel 07/04/23 Range/Units 21:51 Calcium 9.7 (8.4-10.2) mg/dL Phosphorus 6.3 H (2.5-4.5) mg/dL Albumin 3.4 L (3.5-5.0) g/dL Pituitary panel 07/04/23 Range/Units 21:51 Sodium 122 L (137-145) mmol/L Potassium 4.2 (3.5-5.1) mmol/L Chloride 83 L (98-107) mmol/L Carbon Dioxide 22 (22-30) mmol/L BUN 78 H (9-20) mg/dL Creatinine 7.45 H* (0.66-1.25) mg/dL Glucose 211 H (74-99) mg/dL Calcium 9.7 (8.4-10.2) mg/dL Adrenal panel 07/04/23 Range/Units 21:51 Sodium 122 L (137-145) mmol/L Potassium 4.2 (3.5-5.1) mmol/L Chloride 83 L (98-107) mmol/L Carbon Dioxide 22 (22-30) mmol/L BUN 78 H (9-20) mg/dL Creatinine 7.45 H* (0.66-1.25) mg/dL Glucose 211 H (74-99) mg/dL Calcium 9.7 (8.4-10.2) mg/dL Total Bilirubin 0.7 (0.2-1.3) mg/dL AST 74 H (17-59) U/L ALT 47 (4-49) U/L Alkaline Phosphatase 211 H (38-126) U/L Total Protein 6.0 L (6.3-8.2) g/dL Albumin 3.4 L (3.5-5.0) g/dL
[2023-07-05] MEDS: ONDANSETRON 4 MG/2 ML VIAL IVP PRN ×2 (15:51→22:20)
[2023-07-05 16:13] LABS: Glucose,Whole Blood 194 mg/dL (70-110)
[2023-07-05] MEDS ORDERED: FERRIC CITRATE 210 MG PO SCH (17:30)
[2023-07-05] MEDS: PANTOPRAZOLE 40 MG/10 ML VIAL IVP SCH ×2 (17:54→21:40)
[2023-07-05 18:38] VITALS: PULSE 62
[2023-07-05] MEDS ORDERED: CEFTAZIDIME INTRAPERIT SCH (20:00)
[2023-07-05 20:16] LABS: Glucose,Whole Blood 176 mg/dL (70-110)
[2023-07-05] MEDS ORDERED: MEGESTROL 40 MG TAB PO SCH (21:00)
[2023-07-05] MEDS ORDERED: INSULIN DETEMIR (LEVEMIR) 100 UNIT/ML SYR SQ SCH (21:00)
[2023-07-05] MEDS ORDERED: ATORVASTATIN 20 MG TAB PO SCH (21:00)
[2023-07-05 22:36] VITALS: BP 110/69; RESP 17; TEMP 97.3
[2023-07-06] MEDS ORDERED: DIALYSIS (PERIT 1.5%) 2,500 ML 37.5 G/2,500 ML BAG INTRAPERIT SCH (08:00)
--- NOTE | 2023-07-06 17:32 | P.DS ---
Providers Date of admission: 07/05/23 01:43 Expected date of discharge: 07/06/23 Attending physician: Frederick Olivas Consults: 07/05/23 01:43 Consult Physician Routine Consulting Provider: Angelita José Consult Reason/Comments: known Do you want consulting provider notified?: Yes 07/05/23 13:45 Consult Physician Routine Consulting Provider: Aries Salgado Consult Reason/Comments: abd pain Do you want consulting provider notified?: Yes 07/05/23 14:44 Consult Physician Routine Consulting Provider: Jazlyn Small Consult Reason/Comments: peritonitis Do you want consulting provider notified?: Yes Primary care physician: [facility] Course: Chief Complaint: Abdominal pain This is a pleasant 88-year-old patient, follows with Dr. Chirinos. Chronic stable medical conditions include CHF, essential hypertension, hypothyroid, gout, obstructive sleep apnea does not use CPAP, spinal stenosis, sarcoidosis affecting the lungs, pacemaker. Patient is accompanied by his and son at the bedside. In the ER. Patient was in hemodialysis for 6 months and then on peritoneal dialysis. Last year and a half. Business Department Chair Dr. José. For about 4 days patient started having increasing abdominal pain. Rather significant. No fever no chills. Decreased appetite. Patient gets continuous dialysis. Dialysis fluid has become cloudy. He has been receiving intraperitoneal vancomycin and ceftazidime. Outpatient Gram stain per Dr. José showed gram-positive cocci and a white cell count of 1371. She is having nausea to home. Slight vomiting in the ER. July 06: Overnight patient clinical condition worsened. Yesterday patient had a NG tube placed for ileus. The smallest thing patient succumbed underlying condition and Past medical history to include: Congestive heart failure, hypertension, hypothyroid, gout, obstructive sleep apnea does not use CPAP, glomerulonephritis, spinal stenosis, sarcoidosis of the lung, pancreatitis, pacemaker. Denies any CAD. Social history: Patient had multiple jobs. . Prior smoker, no alcohol. INVESTIGATIONS, reviewed in the clinical context: 07/04/2023: White count 8.8 hemoglobin 9.2 platelets 254 sodium 122 potassium 4.2 BUN 78 creatinine 7.45 albumin 3.4 EKG tracing personally reviewed by [id number]-[email or web address] paced rhythm, atrial flutter Computed tomography scan abdomen and pelvis: Abnormal fluid and gas distention. Distention of small bowel loops. Suggestive of enteritis. Cause of : Acute secondary peritonitis from peritoneal dialysis Assessment and plan: -Secondary peritonitis secondary peritoneal dialysis. Patient has been receiving IV ceftazidime and vancomycin and is dialysis exchange. Outpatient culture showed gram-positive cocci. Repeat cultures have been ordered. Patient to continue with vancomycin and ceftazidime with dialysis. Nephrology Dr. José is following. 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 We'll hold off Prandin and Novolin N. We'll/the patient over to Levemir -Patient has persistent nausea and some vomiting. Question about enteritis on the computed tomography scan. No obvious evidence of self obstruction. GI services not available to the hospital. Consult general surgery. Liquid diet -Anemia of chronic kidney disease -Chronic medical debility, uses a cane/walker at baseline Disposition: Patient Plan - Discharge Summary Discharge Rx Participant: Yes New Discharge Prescriptions: No Action Docusate [Colace] 100 mg PO DAILY PRN PRN Reason: Constipation Magnesium Oxide [Mag-Ox] 400 mg PO DAILY Ferric Citrate [Auryxia] 210 mg PO BID-W/MEALS Dialyvite 800 1 tab PO DAILY Repaglinide [Prandin] 1 mg PO AC-TID Midodrine [ProAmatine] 5 mg PO TID PRN PRN Reason: systolic BP <90 Megestrol Acetate 20 mg PO HS Midodrine [ProAmatine] 5 mg PO TID Levothyroxine Sodium [Synthroid] 112 mcg PO DAILY Atorvastatin [Lipitor] 20 mg PO HS HYDROcodone/APAP 5-325MG [[place] 5-325] 1 tab PO TID Albuterol Sulfate [Albuterol Sulfate Hfa] 2 puff PO RT-Q4H PRN PRN Reason: Shortness Of Breath Budesonide [Pulmicort] 0.5 mg INHALATION RT-BID polyethylene glycoL 3350 [Miralax] 17 gm PO DAILY PRN PRN Reason: Constipation Insulin NPH Human Isophane [Novolin N Flexpen] 34 unit SQ HS Insulin NPH Human Isophane [Novolin N Flexpen] 14 unit SQ QAM Pantoprazole [Protonix] 40 mg PO BID Apixaban [Eliquis] 2.5 mg PO BID allopurinoL [Zyloprim] 100 mg PO DAILY Carboxymethylcellulose Sodium [Refresh Tears] 1 drop BOTH EYES QID PRN PRN Reason: Dry Eye(S) Discharge Medication List Albuterol Sulfate [Albuterol Sulfate Hfa] 2 puff PO RT-Q4H PRN 07/05/23 [History] Apixaban [Eliquis] 2.5 mg PO BID 07/05/23 [History] Atorvastatin [Lipitor] 20 mg PO HS 07/05/23 [History] Budesonide [Pulmicort] 0.5 mg INHALATION RT-BID 07/05/23 [History] Carboxymethylcellulose Sodium [Refresh Tears] 1 drop BOTH EYES QID PRN 07/05/23 [History] Dialyvite 800 1 tab PO DAILY 07/05/23 [History] Docusate [Colace] 100 mg PO DAILY PRN 07/05/23 [History] Ferric Citrate [Auryxia] 210 mg PO BID-W/MEALS 07/05/23 [History] HYDROcodone/APAP 5-325MG [[place] 5-325] 1 tab PO TID 07/05/23 [History] Insulin NPH Human Isophane [Novolin N Flexpen] 14 unit SQ QAM 07/05/23 [History] Insulin NPH Human Isophane [Novolin N Flexpen] 34 unit SQ HS 07/05/23 [History] Levothyroxine Sodium [Synthroid] 112 mcg PO DAILY 07/05/23 [History] Magnesium Oxide [Mag-Ox] 400 mg PO DAILY 07/05/23 [History] Megestrol Acetate 20 mg PO HS 07/05/23 [History] Midodrine [ProAmatine] 5 mg PO TID 07/05/23 [History] Midodrine [ProAmatine] 5 mg PO TID PRN 07/05/23 [History] Pantoprazole [Protonix] 40 mg PO BID 07/05/23 [History] Repaglinide [Prandin] 1 mg PO AC-TID 07/05/23 [History] allopurinoL [Zyloprim] 100 mg PO DAILY 07/05/23 [History] polyethylene glycoL 3350 [Miralax] 17 gm PO DAILY PRN 07/05/23 [History] Follow up Appointment(s)/Referral(s): Ceferino Chirinos MD [Primary Care Provider] - 1-2 days Discharge Disposition: - Preliminary Cause of Preliminary Cause of : Acute secondary peritonitis
== END 2023-07-06 03:39 | disposition expired | DRG 867 ==
LOC: EC 19:54 → 5NMEDONC 07-05 01:43
PROVIDERS: ADMIT Hospitalist; ATTEND Hospitalist
PROC: 0D9670Z Drainage of Stomach with Drainage Device, Via Natural or Artificial Opening (ICD-10-PCS; principal; 2023-07-05)
PROC: 3E1M39Z Irrigation of Peritoneal Cavity using Dialysate, Percutaneous Approach (ICD-10-PCS; 2023-07-05)
DX: T80.29XA Infection following other infusion, transfusion and therapeutic injection, initial encounter (principal); K65.2 Spontaneous bacterial peritonitis; N18.6 End stage renal disease; K56.7 Ileus, unspecified; I48.92 Unspecified atrial flutter; I13.2 Hypertensive heart and chronic kidney disease with heart failure and with stage 5 chronic kidney disease, or end stage renal disease; B95.2 Enterococcus as the cause of diseases classified elsewhere; R11.2 Nausea with vomiting, unspecified; Y84.1 Kidney dialysis as the cause of abnormal reaction of the patient, or of later complication, without mention of misadventure at the time of the procedure; Z79.01 Long term (current) use of anticoagulants; Z79.4 Long term (current) use of insulin; Z79.890 Hormone replacement therapy; Z79.899 Other long term (current) drug therapy; Z87.891 Personal history of nicotine dependence; M1A.9XX0 Chronic gout, unspecified, without tophus (tophi); Z95.0 Presence of cardiac pacemaker; Z99.2 Dependence on renal dialysis; K21.9 Gastro-esophageal reflux disease without esophagitis; J44.9 Chronic obstructive pulmonary disease, unspecified; I95.89 Other hypotension; I50.9 Heart failure, unspecified; E03.9 Hypothyroidism, unspecified; D63.1 Anemia in chronic kidney disease; E11.22 Type 2 diabetes mellitus with diabetic chronic kidney disease; Z66 Do not resuscitate; G47.33 Obstructive sleep apnea (adult) (pediatric); M89.8X9 Other specified disorders of bone, unspecified site; D86.0 Sarcoidosis of lung; I48.91 Unspecified atrial fibrillation; I25.10 Atherosclerotic heart disease of native coronary artery without angina pectoris; E86.0 Dehydration; E78.5 Hyperlipidemia, unspecified; Z88.2 Allergy status to sulfonamides; Z88.1 Allergy status to other antibiotic agents; Z91.041 Radiographic dye allergy status; Z90.49 Acquired absence of other specified parts of digestive tract; Z87.19 Personal history of other diseases of the digestive system; Z98.49 Cataract extraction status, unspecified eye
CPT/HCPCS: 36415; 71045; 74176; 80053; 83605; 83735; 84100; 85025; 85610; 85730; 87040; 87070; 87077; 87186; 87205; 93005; 94640; 96365; 96375; 96376; 99285